=== PATIENT | female | born 1950 | race Hispanic/Latino ===

== ENCOUNTER 2019-07-12 10:59 | Observation (INO) | payer MEDICARE ==
--- NOTE | 2019-07-12 11:23 | Emergency Department Report ---
Blank Doc - Documentation Documentation: 69-year-old female that presents with syncopal episode and weakness. This initial assessment/diagnostic orders/clinical plan/treatment(s) is/are subject to change based on patient's health status, clinical progression and re- assessment by fellow clinical providers in the ED. Further treatment and workup at subsequent clinical providers discretion. Patient/guardians urged not to elope from the ED as their condition may be serious if not clinically assessed and managed. Initial orders include: 1- Patient sent to [facility] for further evaluation and treatment 2- cardiac work-up 3- xrays of knee
--- NOTE | 2019-07-12 12:24 | XRay Report ---
RIGHT KNEE 3 VIEWS INDICATION / CLINICAL INFORMATION: knee pain s/p fall COMPARISON: None available. FINDINGS: BONES and JOINT(S): No acute fracture or subluxation. No significant arthritis. SOFT TISSUES: No significant abnormality. ADDITIONAL FINDINGS: None. IMPRESSION: 1. No acute findings. Signer Name: Amos Chavez MD Signed: 07/12/2019 12:19 PM Workstation Name: [id number]
[2019-07-12 12:51] LABS: Basophils % (Auto) 0.5 % (0.0-1.8); Eosinophils % (Auto) 0.3 % (0.0-4.3); Hematocrit 37.6 % (30.3-42.9); Hemoglobin 12.7 gm/dl (10.1-14.3); Lymphocytes # (Auto) 0.9 K/mm3 (1.2-5.4); Lymphocytes % (Auto) 10.6 % (13.4-35.0); Mean Corpuscular HGB Conc 34 % (30-34); Mean Corpuscular Volume 84 fl (79-97); Monocytes % (Auto) 11.8 % (0.0-7.3); Platelet Count 275 K/mm3 (140-440); Red Blood Count 4.46 M/mm3 (3.65-5.03)
[2019-07-12 13:04] LABS: Alanine Aminotransferase 13 units/L (7-56); Albumin 3.9 g/dL (3.9-5); BUN/Creatinine Ratio 11; Blood Urea Nitrogen 8 mg/dL (7-17); Calcium 9.6 mg/dL (8.4-10.2); Hemolysis Index 12
[2019-07-12 13:07] LABS: INR 0.99 (0.87-1.13)
[2019-07-12 13:17] LABS: INR 1.14 (0.87-1.13)
--- NOTE | 2019-07-12 13:27 | Emergency Department Report ---
HPI - General Chief Complaint: Syncope Time Seen by Provider: 07/12/19 11:22 - HPI HPI: 69-year-old female presents to the emergency department by EMS after she was found laying on the ground, having passed out, on [address] The patient says that she was walking from her home to the emergency department to be seen. The patient was seen here 2 days ago on 07/09 for complaints of left hip pain, groin pain, and passing out. Patient says that she woke up this morning with increased pain to the hip, and headache and generalized weakness. She has a past medical history of COPD, hypertension, fibromyalgia and mitral valve prolapse. She is a tobacco smoker but denies any illicit drug use. Primary care physician is Dr. Santino Lawton but she has not seen them regarding her symptoms. No recent travel or sick contacts at home. ED Past Medical Hx - Past Medical History Previous Medical History?: Yes Hx Hypertension: Yes Hx COPD: Yes - Social History Smoking Status: Current Every Day Smoker Substance Use Type: None ED Review of Systems ROS: Stated complaint: WEAKNESS/CP/SYNCOPE Other details as noted in HPI Comment: All other systems reviewed and negative Constitutional: denies: chills, fever Eyes: denies: eye pain, vision change ENT: denies: ear pain, throat pain Respiratory: denies: shortness of breath, wheezing Cardiovascular: syncope. denies: chest pain Gastrointestinal: denies: abdominal pain, vomiting Genitourinary: denies: dysuria, discharge Musculoskeletal: arthralgia. denies: joint swelling Skin: denies: rash, lesions Neurological: headache. denies: numbness, paresthesias Physical Exam - Physical Exam Vital Signs: Vital Signs 07/12/19 07/12/19 11:23 12:44 Temperature 97.7 F 98.3 F Pulse Rate 82 71 Respiratory 20 21 Rate Blood Pressure 120/63 Blood Pressure 103/79 [Left] O2 Sat by Pulse 94 95 Oximetry Physical Exam: GENERAL: The patient is well-developed well-nourished. HENT: Normocephalic. Atraumatic. Patient has moist mucous membranes. EYES: Extraocular motions are intact. NECK: Supple. Trachea is midline. CHEST/LUNGS: Clear to auscultation. There is no respiratory distress noted. HEART/CARDIOVASCULAR: Regular. There is no tachycardia. There is no murmur. ABDOMEN: Abdomen is soft, nontender. Patient has normal bowel sounds. There is no abdominal distention. SKIN: Skin is warm and dry. NEURO: The patient is awake, alert, and oriented. The patient is cooperative. The patient has no focal neurologic deficits. Normal speech. Cranial nerves II through XII grossly intact. No pronator drift. No dysmetria. MUSCULOSKELETAL: Tenderness to palpation to the left hip but no obvious deformity. ED Course Vital Signs 07/12/19 07/12/19 11:23 12:44 Temperature 97.7 F 98.3 F Pulse Rate 82 71 Respiratory 20 21 Rate Blood Pressure 120/63 Blood Pressure 103/79 [Left] O2 Sat by Pulse 94 95 Oximetry ED Medical Decision Making - Lab Data Result diagrams: 07/13/19 03:05 07/13/19 03:05 - EKG Data -: EKG Interpreted by Me EKG shows normal: sinus rhythm, axis, intervals, QRS complexes (Q waves to the anterior leads), ST-T waves Rate: normal - EKG Data When compared to previous EKG there are: no significant change Interpretation: unchanged when compared t (02/09/19) - Radiology Data Radiology results: report reviewed, image reviewed interpreted by me: NONENHANCED CT SCAN OF THE HEAD: INDICATION / CLINICAL INFORMATION: 69 years Female; Syncope, Headache. TECHNIQUE: Routine CT head without contrast. All CT scans at this location are performed using CT dose reduction for ALARA by means of automated exposure control. COMPARISON: CT scan of the head from 03/25/2019 FINDINGS: BRAIN / INTRACRANIAL CONTENTS: No acute hemorrhage, mass effect, midline shift, hydrocephalus, or acute, large territorial infarct. No chronic infarct or focal atrophy confluent periventricular and deep hemispheric white matter low attenuation areas due to chronic small vessel disease; remains unchanged CRANIOCERVICAL JUNCTION: No significant abnormality. ORBITS: No significant abnormality of visualized orbits. SINUSES / MASTOIDS: No significant abnormality of the visualized paranasal sinuses or mastoid air cells. ADDITIONAL FINDINGS: None. IMPRESSION: CT findings remain unchanged; no acute parenchymal lesion in the brain Chest x-ray does not show any acute process. There are no pleural effusions, obvious pneumonia and there is no pneumothorax. X-ray of the left hip and right knee does not show any fracture, dislocation, or any acute process. - Medical Decision Making This patient presents to the emergency department with a complaint of multiple recent syncopal episodes including 2 in the past last 2 days. With this most recent fall she had some right knee pain and has been having left hip pain. X- rays were done of these areas that did not show any fracture, dislocation or any acute process. CT of the head did not show any acute bleed, shift, mass, ischemia, or any other acute process. EKG did not show any signs of ST eleva tion [place]. Labs were mostly unremarkable and did not show any etiology of the patient's symptoms. She will be admitted to the hospital for further evaluation and treatment and was accepted for admission by the hospitalist, Dr. Fontanez. - Differential Diagnosis Electrolyte abnormalities, dysrhythmia, CO, TIA Critical Care Time: No Critical care attestation.: If time is entered above; I have spent that time in minutes in the direct care of this critically ill patient, excluding procedure time. ED Disposition Clinical Impression: Syncope and collapse Nicotine dependence Qualifiers: Nicotine product type: cigarettes HTN (hypertension) Qualifiers: Hypertension type: essential hypertension Qualified Code(s): I10 - Essential (primary) hypertension Disposition: 09 OP ADMIT IP TO THIS HOSP Is pt being admited?: Yes Condition: Fair
[2019-07-12] MEDS ORDERED: MORPHINE 4 MG/1 ML INJ IM ONE (13:44)
[2019-07-12] MEDS ORDERED: MORPHINE 4 MG/1 ML INJ ONE (13:45)
--- NOTE | 2019-07-12 13:58 | XRay Report ---
LEFT HIP AND PELVIS 3 VIEWS INDICATION: Left hip pain. COMPARISON: No relevant prior imaging study available. FINDINGS: No acute skeletal abnormality. Mild osteoarthrosis changes are noted. No significant soft tissue swel ling. IMPRESSION: 1. No acute findings. CHEST 1 VIEW INDICATION: Syncope, cough. COMPARISON: 03/07/2019 FINDINGS: Support devices: None. Heart: Stable. Lungs/Pleura: No acute pulmonary or pleural findings. IMPRESSION: 1. No acute findings. Signer Name: Barry Mulligan MD Signed: 07/12/2019 1:54 PM Workstation Name: [id number]
--- NOTE | 2019-07-12 16:48 | Cat Scan Report ---
NONENHANCED CT SCAN OF THE HEAD: INDICATION / CLINICAL INFORMATION: 69 years Female; Syncope, Headache. TECHNIQUE: Routine CT head without contrast. All CT scans at this location are performed using CT dos e reduction for ALARA by means of automated exposure control. COMPARISON: CT scan of the head from 03/25/2019 FINDINGS: BRAIN / INTRACRANIAL CONTENTS: No acute hemorrhage, mass effect, midline shift, hydrocephalus, or ac [place], large territorial infarct. No chronic infarct or focal atrophy confluent periventricular and kalia p hemispheric white matter low attenuation areas due to chronic small vessel disease; remains unchang ed CRANIOCERVICAL JUNCTION: No significant abnormality. ORBITS: No significant abnormality of visualized orbits. SINUSES / MASTOIDS: No significant abnormality of the visualized paranasal sinuses or mastoid air tree ls. ADDITIONAL FINDINGS: None. IMPRESSION: CT findings remain unchanged; no acute parenchymal lesion in the brain Signer Name: Joseline Acosta MD Signed: 07/12/2019 4:44 PM Workstation Name: [id number]
[2019-07-12] MEDS ORDERED: oxyCODONE /ACETAMINOPHEN 5-325MG TAB PO PRN (20:10)
[2019-07-12] MEDS ORDERED: ONDANSETRON 4 MG/2 ML INJ IV PRN (20:10)
[2019-07-12] MEDS ORDERED: ACETAMINOPHEN 325 MG TAB PO PRN (20:10)
--- NOTE | 2019-07-12 20:15 | History and Physical Report ---
History of Present Illness Date of examination: 07/12/19 Date of admission: 07/12/19 Chief complaint: Passed out on [address] History of present illness: 69-year-old female presents to the emergency department by EMS after she was found laying on the ground, having passed out, on [address]. Very poor Historian.Says she passed out about 4 times over last 4 weeks.Apparently no workup was done. The patient says that she was walking from her home to the emergency department to be seen. The patient was seen here 2 days ago on 07/09 for complaints of left hip pain, groin pain, and passing out. Patient says that she woke up this morning with increased pain to the hip, and headache and generalized weakness. She has a past medical history of COPD, hypertension, fibromyalgia and mitral valve prolapse. She is a tobacco smoker but denies any illicit drug use. Primary care physician is Dr. Santino Lawton but she has not seen them regarding her symptoms. No recent travel or sick contacts at home. Answering my questions appropriately. Past Medical History Previous Medical History?: Yes Hypertension: Yes COPD: Yes Syncope Surgery Hx NA Social History Smoking Status: Current Every Day Smoker Substance Use Type: None FH HTN Review of Systems ROS: Stated complaint: WEAKNESS/CP/SYNCOPE Other details as noted in HPI Comment: All other systems reviewed and negative Constitutional: denies: chills, fever Eyes: denies: eye pain, vision change ENT: denies: ear pain, throat pain Respiratory: denies: shortness of breath, wheezing Cardiovascular: syncope. denies: chest pain Gastrointestinal: denies: abdominal pain, vomiting Genitourinary: denies: dysuria, discharge Musculoskeletal: arthralgia. denies: joint swelling Skin: denies: rash, lesions Neurological: headache. denies: numbness, paresthesias Medications and Allergies Allergies Allergy/AdvReac Type Severity Reaction Status Date / Time codeine Allergy Itching Verified 07/12/19 11:06 Iodine and Iodide Containing Allergy Unknown Verified 07/12/19 11:07 Produc Penicillins Allergy Hives Verified 07/12/19 11:06 Active Meds: Active Medications Acetaminophen (Tylenol) 650 mg PO Q4H PRN PRN Reason: Pain MILD(1-3)/Fever >100.5/PADILLA Famotidine (Pepcid) 20 mg PO BID SALUD Heparin Sodium (Porcine) (Heparin) 5,000 unit SUB-Q Q12HR SALUD Hydromorphone HCl (Dilaudid) 0.5 mg IV Q3H PRN PRN Reason: Pain , Severe (7-10) Sodium Chloride (Nacl 0.9% 1000 Ml) 1,000 mls @ 75 mls/hr IV DIRECT SALUD Ondansetron HCl (Zofran) 4 mg IV Q8H PRN PRN Reason: Nausea And Vomiting Oxycodone/Acetaminophen (Percocet 5/325) 1 tab PO Q6H PRN PRN Reason: Pain, Moderate (4-6) Sodium Chloride (Sodium Chloride Flush Syringe 10 Ml) 10 ml IV BID SALUD Sodium Chloride (Sodium Chloride Flush Syringe 10 Ml) 10 ml IV PRN PRN PRN Reason: LINE FLUSH Exam - Constitutional Vitals: Temp Pulse Resp BP Pulse Ox 98.3 F 71 21 103/79 95 07/12/19 12:44 07/12/19 12:44 07/12/19 12:44 07/12/19 12:44 07/12/19 12:44 General appearance: Present: no acute distress, well-nourished - EENT Eyes: Present: PERRL ENT: hearing intact, clear oral mucosa - Neck Neck: Present: supple, normal ROM - Respiratory Respiratory effort: normal Respiratory: bilateral: CTA - Cardiovascular Heart rate: 76 Rhythm: regular Heart Sounds: Present: S1 & S2. Absent: rub, click - Extremities Extremities: pulses symmetrical, No edema Peripheral Pulses: within normal limits - Abdominal General gastrointestinal: Present: soft, non-tender, non-distended, normal bowel sounds Female genitourinary: Present: normal - Integumentary Integumentary: Present: clear, warm, dry - Musculoskeletal Musculoskeletal: gait normal, strength equal bilaterally - Psychiatric Psychiatric: appropriate mood/affect, intact judgment & insight - Neurologic Neurologic: CNII-XII intact, moves all extremities - Allied Health Allied health notes reviewed: nursing, case management CALVIN score - Calvin Score Age > 65: (1) Yes Aspirin use within the Past 7 Days: (0) No 3 or more CAD Risk Factors: (0) No 2 or more Angina events in past 24 hrs: (0) No Known CAD with more than 50% Stenosis: (0) No Elevated Cardiac Markers: (0) No ST Deviation Greater than 0.5mm: (0) No CALVIN Score: 1 Results - Labs CBC & Chem 7: 07/13/19 03:05 07/13/19 03:05 Labs: Laboratory Last Values WBC 8.8 K/mm3 (4.5-11.0) 07/12/19 12:00 RBC 4.46 M/mm3 (3.65-5.03) 07/12/19 12:00 Hgb 12.7 gm/dl (10.1-14.3) 07/12/19 12:00 Hct 37.6 % (30.3-42.9) 07/12/19 12:00 MCV 84 fl (79-97) 07/12/19 12:00 MCH 29 pg (28-32) 07/12/19 12:00 MCHC 34 % (30-34) 07/12/19 12:00 RDW 15.0 % (13.2-15.2) 07/12/19 12:00 Plt Count 275 K/mm3 (140-440) 07/12/19 12:00 Lymph % (Auto) 10.6 % (13.4-35.0) L 07/12/19 12:00 [place] % (Auto) 11.8 % (0.0-7.3) H 07/12/19 12:00 Eos % (Auto) 0.3 % (0.0-4.3) 07/12/19 12:00 Baso % (Auto) 0.5 % (0.0-1.8) 07/12/19 12:00 Lymph # 0.9 K/mm3 (1.2-5.4) L 07/12/19 12:00 [place] # 1.0 K/mm3 (0.0-0.8) H 07/12/19 12:00 Eos # 0.0 K/mm3 (0.0-0.4) 07/12/19 12:00 Baso # 0.0 K/mm3 (0.0-0.1) 07/12/19 12:00 Seg Neutrophils % 76.8 % (40.0-70.0) H 07/12/19 12:00 Seg Neutrophils # 6.8 K/mm3 (1.8-7.7) 07/12/19 12:00 PT 14.8 Sec. (12.2-14.9) 07/12/19 12:48 INR 1.14 (0.87-1.13) H 07/12/19 12:48 APTT 32.0 Sec. (24.2-36.6) 07/12/19 12:00 Sodium 132 mmol/L (137-145) L 07/12/19 12:00 Potassium 4.4 mmol/L (3.6-5.0) 07/12/19 12:00 Chloride 94.7 mmol/L (98-107) L 07/12/19 12:00 Carbon Dioxide 20 mmol/L (22-30) L 07/12/19 12:00 Anion Gap 22 mmol/L 07/12/19 12:00 BUN 8 mg/dL (7-17) 07/12/19 12:00 Creatinine 0.7 mg/dL (0.7-1.2) 07/12/19 12:00 Estimated GFR > 60 ml/min 07/12/19 12:00 BUN/Creatinine Ratio 11 % 07/12/19 12:00 Glucose 105 mg/dL (65-100) H 07/12/19 12:00 Calcium 9.6 mg/dL (8.4-10.2) 07/12/19 12:00 Total Bilirubin 0.90 mg/dL (0.1-1.2) 07/12/19 12:00 AST 22 units/L (5-40) 07/12/19 12:00 ALT 13 units/L (7-56) 07/12/19 12:00 Alkaline Phosphatase 92 units/L (35-129) 07/12/19 12:00 Troponin T < 0.010 ng/mL (0.00-0.029) 07/12/19 14:21 Total Protein 7.9 g/dL (6.3-8.2) 07/12/19 12:00 Albumin 3.9 g/dL (3.9-5) 07/12/19 12:00 Albumin/Globulin Ratio 1.0 % 07/12/19 12:00 TSH 1.590 mlU/mL (0.270-4.200) 07/12/19 12:48 Short CBC 07/12/19 07/13/19 Range/Units 12:00 03:05 WBC 8.8 8.6 (4.5-11.0) K/mm3 Hgb 12.7 11.6 (10.1-14.3) gm/dl Hct 37.6 34.9 (30.3-42.9) % Plt Count 275 253 (140-440) K/mm3 BMP 07/12/19 07/13/19 12:00 03:05 Sodium 132 L 133 L Potassium 4.4 4.2 Chloride 94.7 L 97.6 L Carbon Dioxide 20 L 22 BUN 8 10 Creatinine 0.7 0.5 L Glucose 105 H 102 H Calcium 9.6 8.9 Cardiac Enzymes 07/12/19 07/12/19 07/13/19 Range/Units 14:21 20:34 02:55 Troponin T < 0.010 < 0.010 < 0.010 (0.00-0.029) ng/mL Liver Function 07/12/19 07/13/19 Range/Units 12:00 03:05 Total Bilirubin 0.90 0.40 (0.1-1.2) mg/dL AST 22 17 (5-40) units/L ALT 13 11 (7-56) units/L Alkaline Phosphatase 92 87 (35-129) units/L Albumin 3.9 3.5 L (3.9-5) g/dL Urine 07/12/19 Range/Units Unknown Urine Color Yellow (Yellow) Urine pH 6.0 (5.0-7.0) Ur Specific [place] 1.010 (1.003-1.030) Urine Protein <15 mg/dl (Negative) mg/dL Urine Glucose (UA) Neg (Negative) mg/dL - Imaging and Cardiology EKG: report reviewed (NSR 76/min old ant infarct) Assessment and Plan Advance Directives: Yes (Full code) VTE prophylaxis?: Chemical Plan of care discussed with patient/family: Yes - Patient Problems (1) Syncope and collapse Current Visit: Yes Status: Acute Plan to address problem: Syncope work up ECHO and Lexiscan and CDS Orthostatics positive (2) Hyponatremia Current Visit: Yes Status: Acute Plan to address problem: IV NS for now (3) COPD (chronic obstructive pulmonary disease) Current Visit: Yes Status: Chronic Qualifiers: Emphysema type: unspecified Plan to address problem: Duonebs prd (4) Nicotine dependence Current Visit: Yes Status: Chronic Qualifiers: Nicotine product type: cigarettes Plan to address problem: Counselled Nicoderm patch initiated (5) HTN (hypertension) Current Visit: Yes Status: Chronic Qualifiers: Hypertension type: essential hypertension Qualified Code(s): I10 - Essential (primary) hypertension Plan to address problem: By history No BP meds Trend and start antihypertensives if necessary (6) DVT prophylaxis Current Visit: Yes Status: Acute Plan to address problem: On Heparin and GI prophylaxis
[2019-07-12] MEDS ORDERED: HYDROmorphone 1 MG/1 ML INJ ONE (20:25)
[2019-07-12] MEDS: HYDROmorphone 1 MG/1 ML INJ IV PRN (20:51)
[2019-07-12 21:21] LABS: Bacteria,Urine 1+ /HPF (Negative); Bilirubin,Urine NEG (Negative); Blood,Urine NEG (Negative); Color,Urine Yellow (Yellow); Mucus,Urine FEW /HPF; Protein,Urine <15 mg/dL mg/dL (Negative)
[2019-07-12 21:39] LABS: Amphetamine Screen,Urine PRESUMPTIVE NEGATIVE; Benzodiazepines Screen,Urine PRESUMPTIVE NEGATIVE; Cannabinoid Screen,Urine PRESUMPTIVE NEGATIVE; Cocaine Screen,Urine PRESUMPTIVE NEGATIVE; Methadone Screen,Urine PRESUMPTIVE NEGATIVE; Opiate Screen,Urine PRESUMPTIVE NEGATIVE
[2019-07-12] MEDS: HEPARIN 5,000 UNIT/1 ML VIAL SUB-Q SCH (22:21)
[2019-07-12] MEDS: FAMOTIDINE 20 MG TAB PO SCH (22:21)
[2019-07-12] MEDS: SODIUM CHLORIDE 0.9% 1000 ML 1,000 ML IV SCH (22:21)
[2019-07-13 03:20] LABS: Basophils % (Auto) 0.4 % (0.0-1.8); Eosinophils # (Auto) 0.1 K/mm3 (0.0-0.4); Hematocrit 34.9 % (30.3-42.9); Hemoglobin 11.6 gm/dl (10.1-14.3); Lymphocytes # (Auto) 1.5 K/mm3 (1.2-5.4); Mean Corpuscular HGB Conc 33 % (30-34); Mean Corpuscular Volume 84 fl (79-97); Monocytes # (Auto) 1.1 K/mm3 (0.0-0.8); Monocytes % (Auto) 12.4 % (0.0-7.3); Platelet Count 253 K/mm3 (140-440); Red Blood Count 4.15 M/mm3 (3.65-5.03); Red Cell Distribution Width 14.9 % (13.2-15.2)
[2019-07-13 03:37] LABS: Alanine Aminotransferase 11 units/L (7-56); Albumin 3.5 g/dL (3.9-5); BUN/Creatinine Ratio 20; Blood Urea Nitrogen 10 mg/dL (7-17); Calcium 8.9 mg/dL (8.4-10.2); Hemolysis Index 18
[2019-07-13] MEDS ORDERED: REGADENOSON 0.4 MG/5 ML INJ IV ONE (08:06)
--- NOTE | 2019-07-13 10:20 | Vascular Lab Report ---
BILATERAL CAROTID DUPLEX DOPPLER ULTRASOUND HISTORY: Syncope COMPARISON: None. TECHNIQUE: Wang scale, color and spectral Doppler imaging was performed of the extracranial neck ceferino sebastian. All stenosis measurements were obtained in comparison with the distal internal carotid artery per the SRU consensus criteria. FINDINGS: RIGHT NECK ARTERIES: CCA: No significant abnormality. ICA: Moderate calcified bulb plaque. ECA: No significant abnormality. Vertebral Artery: No significant abnormality. Antegrade flow. LEFT NECK ARTERIES: CCA: No significant abnormality. ICA: Extensive calcified bulb plaque. ECA: No significant abnormality. Vertebral Artery: No significant abnormality. Antegrade flow. CCA PSV: Right: 122 Left: 91 cm/sec ICA PSV: Right: 88 Left: 137 cm/sec ICA/CCA: Right: 1.36 Left 2.26 ADDITIONAL FINDINGS: None. IMPRESSION: 1. 50-79% stenosis proximal left ICA. 2. Less than 50% stenosis proximal right ICA. Signer Name: Santino Mann MD Signed: 07/13/2019 10:16 AM Workstation Name: [id number]
[2019-07-13] MEDS: HYDROmorphone 1 MG/1 ML INJ IV PRN ×3 (11:55→20:55)
[2019-07-13] MEDS: FAMOTIDINE 20 MG TAB PO SCH ×2 (11:55→20:59)
--- NOTE | 2019-07-13 13:09 | Treadmill Report ---
THALIUM STRESS TEST. LEFT VENTRICLE: Left ventricular chamber size is within normal spread. Perfusion study demonstrates homogeneous uptake of the tracer in all segments, no significant defects identified. Gated analysis demonstrates normal left ventricular systolic function, ejection fraction is calculated at 72%. CONCLUSION: Normal myocardial perfusion study. JOB# [id number] CA/NTS
--- NOTE | 2019-07-13 13:33 | Progress Note ---
Assessment and Plan Assessment and plan: Syncope and collapse -Patient had orthostatic hypotension and was given IV fluids -Echo and stress test was negative -CT head was negative -Carotid Doppler was done showed left ICA stenosis 50 to 79%, order CTA neck -PT OT evaluation Bilateral pneumonia -Patient is on IV antibiotics -Patient had fever overnight Hyponatremia -Improved with IV fluid COPD exacerbation -PRN DuoNeb's -Not in exacerbation Nicotine dependence -Counseled about cessation of smoking -Continue NicoDerm patch Hypertension -Controlled DVT prophylaxis -On heparin Disposition -Continue inpatient care. Follow until she is fever free. History Interval history: Patient was seen and evaluated this morning, patient is complaining of pain at the hip and shoulder, the site where she hits when she fall. Patient had episode of fever overnight 100.7. Hospitalist Physical - Physical exam Narrative exam: Not in cardiopulmonary distress. The patient appeared well nourished and normally developed. Vital signs as documented. Head exam is unremarkable. No scleral icterus . Neck is without jugular venous distension, thyromegaly, or carotid bruits. Lungs are clear to auscultation. Cardiac exam reveals regular rate and Rhythm. Abdominal exam reveals normal bowel sounds, nontender, no organomegaly. Extremities are nonedematous and both femoral and pedal pulses are normal. PURCHASING COORDINATOR: Alert and oriented 3. No focal weakness. - Constitutional Vitals: Temp Pulse Resp BP Pulse Ox 98.2 F 74 20 147/76 91 07/13/19 12:28 07/13/19 12:28 07/13/19 12:28 07/13/19 12:28 07/13/19 12:28 General appearance: Present: no acute distress, well-nourished ARI score - Ari Score Age > 65: (1) Yes Aspirin use within the Past 7 Days: (0) No 3 or more CAD Risk Factors: (0) No 2 or more Angina events in past 24 hrs: (0) No Known CAD with more than 50% Stenosis: (0) No Elevated Cardiac Markers: (0) No ST Deviation Greater than 0.5mm: (0) No ARI Score: 1 Results - Labs CBC & Chem 7: 07/13/19 03:05 07/13/19 03:05 Labs: Laboratory Last Values WBC 8.6 K/mm3 (4.5-11.0) 07/13/19 03:05 RBC 4.15 M/mm3 (3.65-5.03) 07/13/19 03:05 Hgb 11.6 gm/dl (10.1-14.3) 07/13/19 03:05 Hct 34.9 % (30.3-42.9) 07/13/19 03:05 MCV 84 fl (79-97) 07/13/19 03:05 MCH 28 pg (28-32) 07/13/19 03:05 MCHC 33 % (30-34) 07/13/19 03:05 RDW 14.9 % (13.2-15.2) 07/13/19 03:05 Plt Count 253 K/mm3 (140-440) 07/13/19 03:05 Lymph % (Auto) 17.0 % (13.4-35.0) 07/13/19 03:05 [place] % (Auto) 12.4 % (0.0-7.3) H 07/13/19 03:05 Eos % (Auto) 1.0 % (0.0-4.3) 07/13/19 03:05 Baso % (Auto) 0.4 % (0.0-1.8) 07/13/19 03:05 Lymph # 1.5 K/mm3 (1.2-5.4) 07/13/19 03:05 [place] # 1.1 K/mm3 (0.0-0.8) H 07/13/19 03:05 Eos # 0.1 K/mm3 (0.0-0.4) 07/13/19 03:05 Baso # 0.0 K/mm3 (0.0-0.1) 07/13/19 03:05 Seg Neutrophils % 69.2 % (40.0-70.0) 07/13/19 03:05 Seg Neutrophils # 6.0 K/mm3 (1.8-7.7) 07/13/19 03:05 PT 14.8 Sec. (12.2-14.9) 07/12/19 12:48 INR 1.14 (0.87-1.13) H 07/12/19 12:48 APTT 32.0 Sec. (24.2-36.6) 07/12/19 12:00 Sodium 133 mmol/L (137-145) L 07/13/19 03:05 Potassium 4.2 mmol/L (3.6-5.0) 07/13/19 03:05 Chloride 97.6 mmol/L (98-107) L 07/13/19 03:05 Carbon Dioxide 22 mmol/L (22-30) 07/13/19 03:05 Anion Gap 18 mmol/L 07/13/19 03:05 BUN 10 mg/dL (7-17) 07/13/19 03:05 Creatinine 0.5 mg/dL (0.7-1.2) L 07/13/19 03:05 Estimated GFR > 60 ml/min 07/13/19 03:05 BUN/Creatinine Ratio 20 % 07/13/19 03:05 Glucose 102 mg/dL (65-100) H 07/13/19 03:05 Hemoglobin A1c 5.5 % (4-6) 07/13/19 03:05 Calcium 8.9 mg/dL (8.4-10.2) 07/13/19 03:05 Total Bilirubin 0.40 mg/dL (0.1-1.2) 07/13/19 03:05 AST 17 units/L (5-40) 07/13/19 03:05 ALT 11 units/L (7-56) 07/13/19 03:05 Alkaline Phosphatase 87 units/L (35-129) 07/13/19 03:05 Troponin T < 0.010 ng/mL (0.00-0.029) 07/13/19 07:22 Total Protein 6.9 g/dL (6.3-8.2) 07/13/19 03:05 Albumin 3.5 g/dL (3.9-5) L 07/13/19 03:05 Albumin/Globulin Ratio 1.0 % 07/13/19 03:05 TSH 1.590 mlU/mL (0.270-4.200) 07/12/19 12:48 Urine Color Yellow (Yellow) 07/12/19 Unknown Urine Turbidity Clear (Clear) 07/12/19 Unknown Urine pH 6.0 (5.0-7.0) 07/12/19 Unknown Ur Specific [place] 1.010 (1.003-1.030) 07/12/19 Unknown Urine Protein <15 mg/dl mg/dL (Negative) 07/12/19 Unknown Urine Glucose (UA) Neg mg/dL (Negative) 07/12/19 Unknown Urine Ketones Neg mg/dL (Negative) 07/12/19 Unknown Urine Blood Neg (Negative) 07/12/19 Unknown Urine Nitrite Neg (Negative) 07/12/19 Unknown Urine Bilirubin Neg (Negative) 07/12/19 Unknown Urine Urobilinogen 4.0 mg/dL (<2.0) 07/12/19 Unknown Ur Leukocyte Esterase Neg (Negative) 07/12/19 Unknown Urine WBC (Auto) 1.0 /HPF (0.0-6.0) 07/12/19 Unknown Urine RBC (Auto) 7.0 /HPF (0.0-6.0) 07/12/19 Unknown U Epithel Cells (Auto) 4.0 /HPF (0-13.0) 07/12/19 Unknown Urine Bacteria (Auto) 1+ /HPF (Negative) 07/12/19 Unknown Urine Mucus Few /HPF 07/12/19 Unknown Urine Yeast (Budding) Few /HPF 07/12/19 Unknown Urine Opiates Screen Presumptive negative 07/12/19 Unknown Urine Methadone Screen Presumptive negative 07/12/19 Unknown Ur Barbiturates Screen Presumptive negative 07/12/19 Unknown Ur Phencyclidine Scrn Presumptive negative 07/12/19 Unknown Ur Amphetamines Screen Presumptive negative 07/12/19 Unknown U Benzodiazepines Scrn Presumptive negative 07/12/19 Unknown Urine Cocaine Screen Presumptive negative 07/12/19 Unknown U Marijuana (THC) Screen Presumptive negative 07/12/19 Unknown Drugs of Abuse Note Disclamer 07/12/19 Unknown - Diagnostic Impressions Diagnostic Impressions: Echocardiogram 07/12/19 20:15 Transthoracic Echocardiogram Indication: Syncope BP: 122/55 HR: 62 Conclusions *Global left ventricular systolic function is normal. *The estimated ejection fraction is 55-60%. *Mild concentric left ventricular hypertrophy is observed. *There is trace-mild mitral regurgitation. *There is mild tricuspid regurgitation. Findings Left Ventricle: The left ventricular chamber size is normal. Mild concentric left ventricular hypertrophy is observed. Global left ventricular systolic function is normal. The estimated ejection fraction is 55-60%. Left Atrium: The left atrial chamber size is normal. Right Ventricle: The right ventricular cavity size is normal. The right ventricular global systolic function is normal. Right Atrium: The right atrial cavity size is normal. Aortic Valve: The aortic valve is trileaflet. The aortic valve leaflets are mildly thickened. There is no evidence of aortic regurgitation. There is no evidence of aortic stenosis. Mitral Valve: The mitral valve leaflets are mildly thickened. There is mild mitral regurgitation. There is no evidence of mitral stenosis. Tricuspid Valve: There is mild tricuspid regurgitation. No pulmonary hypertension is noted. Pulmonic Valve: There is trace pulmonic regurgitation. Pericardium: There is no pericardial effusion. Aorta: There is no dilatation of the ascending aorta. There is no dilatation of the aortic arch. There is no dilatation of the aortic root. Venous: The inferior vena cava appears normal in size. Measurements Chambers 2D Name Value Normal Range IVSd (2D) 0.92 cm (0.6 - 1.1) LVPWd (2D) 0.88 cm (0.6 - 1.1) LVIDd (2D) 4.09 cm (3.7 - 5.6) LVIDs (2D) 2.93 cm (2 - 3.8) LV FS (2D) 28.41 % - EF Teichholz (2D) 55.31 % - Ao root diameter (2D) 3 cm (2 - 3.7) Volumes/Mass Name Value Normal Range LA ESV SP 4CH (A/L) 46.79 ml - LA ESV SP 2CH (A/L) 50.52 ml - LA ESV BP (A/L) 49.46 ml - LA ESV BP (A/L) index 26.88 ml/m2 - LA ESV SP 4CH (MOD) 43.84 ml - LA ESV SP 2CH (MOD) 48.98 ml - LA ESV BP (MOD) 47.05 ml - LA ESV BP (MOD) index 25.57 ml/m2 - Diastolic/Systolic Function Name Value Normal Range MV E-wave Vmax 0.7 m/sec - MV deceleration time 285.61 msec - MV A-wave Vmax 0.93 m/sec - MV E:A ratio 0.75 ratio - Aortic Valve Name Value Normal Range AV Vmax 1.37 m/sec - AV VTI 31.88 cm - AV peak gradient 7.56 mmHg - AV mean gradient 3.95 mmHg - LVOT diameter 2.04 cm - LVOT Vmax 1.09 m/sec - LVOT VTI 26.44 cm - LVOT peak gradient 4.77 mmHg - LVOT mean gradient 2.55 mmHg - SV LVOT 86.48 ml - KEVIN (continuity Vmax) 2.6 cm2 - KEVIN (continuity VTI) 2.71 cm2 - Tricuspid Valve Name Value Normal Range TR Vmax 2 m/sec - TR peak gradient 16 mmHg - RAP 3 mmHg - RVSP 18 mmHg - IVC diameter 1.85 cm (1.2 - 2.3) Pulmonic Valve/Qp:Qs Name Value Normal Range PV Vmax 1.05 m/sec - PV peak gradient 4.37 mmHg - PV acceleration time 95.15 msec - Méndez/IV: Voiding Method Toilet IV Catheter Type [Left Forearm INT / Saline Lock ] Active Medications - Current Medications Current Medications: Generic Name Dose Route Start Last Admin Trade Name Freq PRN Reason Stop Dose Admin Acetaminophen 650 mg 07/12/19 20:10 07/13/19 01:45 Tylenol PO 650 mg Q4H PRN Administration Pain MILD(1-3)/Fever >100.5/PADILLA Famotidine 20 mg 07/12/19 22:00 07/13/19 11:55 Pepcid PO 20 mg BID SALUD Administration Heparin Sodium (Porcine) 5,000 unit 07/12/19 22:00 07/12/19 22:21 Heparin SUB-Q 5,000 unit Q12HR SALUD Administration Hydromorphone HCl 0.5 mg 07/12/19 20:10 07/13/19 11:55 Dilaudid IV 0.5 mg Q3H PRN Administration Pain , Severe (7-10) Sodium Chloride 1,000 mls @ 75 mls/hr 07/12/19 20:15 07/12/19 22:21 Nacl 0.9% 1000 Ml IV 75 mls/hr DIRECT SALUD Administration Ondansetron HCl 4 mg 07/12/19 20:10 Zofran IV Q8H PRN Nausea And Vomiting Oxycodone/Acetaminophen 1 tab 07/12/19 20:10 Percocet 5/325 PO Q6H PRN Pain, Moderate (4-6) Sodium Chloride 10 ml 07/12/19 22:00 07/13/19 11:55 Sodium Chloride Flush Syringe 10 Ml IV 10 ml BID SALUD Administration Sodium Chloride 10 ml 07/12/19 20:10 Sodium Chloride Flush Syringe 10 Ml IV PRN PRN LINE FLUSH
[2019-07-13] MEDS: HEPARIN 5,000 UNIT/1 ML VIAL SUB-Q SCH ×2 (15:21→20:59)
[2019-07-14] MEDS: HYDROmorphone 1 MG/1 ML INJ IV PRN ×3 (00:37→09:51)
[2019-07-14] MEDS: SODIUM CHLORIDE 0.9% 1000 ML 1,000 ML IV SCH (04:59)
[2019-07-14] MEDS: HEPARIN 5,000 UNIT/1 ML VIAL SUB-Q SCH (09:51)
[2019-07-14] MEDS: FAMOTIDINE 20 MG TAB PO SCH (09:51)
--- NOTE | 2019-07-14 11:43 | Discharge Summary ---
Providers - Providers Date of Admission: 07/12/19 20:10 Date of discharge: 07/14/19 Attending physician: CHAZ VARGAS MD 07/13/19 08:20 Physical Therapy Evaluation and Treat [CONS] Routine Comment: Reason For Exam: syncope and collapse 07/13/19 08:21 Occupational Therapy Evaluate and Treat [CONS] Routine Comment: Reason For Exam: syncope and fall Primary care physician: DEXTER LAKHANI Hospitalization Reason for admission: Syncope, fall, Bilateral pneumonia Condition: Fair Hospital course: 69-year-old female presents to the emergency department by EMS after she was found laying on the ground, having passed out, [place] [address]. Very poor Historian.Says she passed out about 4 times over last 4 weeks.Apparently no workup was done. The patient says that she was walking from her home to the emergency department to be seen. The patient was seen here 2 days ago on 07/09 for complaints of left hip pain, groin pain, and passing out. Patient says that she woke up this morning with increased pain to the hip, and headache and generalized weakness. She has a past medical history of COPD, hypertension, fibromyalgia and mitral valve prolapse. She is a tobacco smoker but denies any illicit drug use. Primary care physician is Dr. Dexter Lakhani but she has not seen them regarding her symptoms. No recent travel or sick contacts at home. Answering my questions appropriately. patient was admitted to the floor and was started with appropriate antibiotics for pneumonia. CT head, Echo was done and unremarkable. carotid doppler showed left ICA 50-79% stenosis. CTA was ordered and was not done because patient is allergic to contrast. Patient scheduled to see vascular as an O/P. Patient was evaluated by PT/OT and no need. patient was doing well and ambulating without problems and discharged home with PO antibiotics. Disposition: - TO HOME OR SELFCARE Time spent for discharge: 32 minutes - Discharge Diagnoses (1) Pneumonia Status: Acute Qualifiers: Pneumonia type: due to unspecified organism Laterality: bilateral Lung location: unspecified part of lung Qualified Code(s): J18.9 - Pneumonia, unspecified organism (2) Hyponatremia Status: Acute (3) Syncope and collapse Status: Acute (4) COPD (chronic obstructive pulmonary disease) Status: Chronic Qualifiers: Emphysema type: unspecified (5) HTN (hypertension) Status: Chronic Qualifiers: Hypertension type: essential hypertension Qualified Code(s): I10 - Essential (primary) hypertension (6) Nicotine dependence Status: Chronic Qualifiers: Nicotine product type: cigarettes Core Measure Documentation - Palliative Care Palliative Care/ Comfort Measures: Not Applicable - Core Measures Any of the following diagnoses?: none Exam - Physical Exam Narrative exam: Not in cardiopulmonary distress. The patient appeared well nourished and normally developed. Vital signs as documented. Head exam is unremarkable. No scleral icterus . Neck is without jugular venous distension, thyromegaly, or carotid bruits. Lungs are clear to auscultation. Cardiac exam reveals regular rate and Rhythm. Abdominal exam reveals normal bowel sounds, nontender, no organomegaly. Extremities are nonedematous and both femoral and pedal pulses are normal. INTERNET MARKETING MANAGER: Alert and oriented 3. No focal weakness. - Constitutional Vitals: Temp Pulse Resp BP Pulse Ox 98.3 F 61 18 151/68 97 07/14/19 08:00 07/14/19 10:00 07/14/19 08:00 07/14/19 08:00 07/14/19 04:03 Plan Activity: no restrictions Weight Bearing Status: Full Weight Bearing Diet: regular Follow up with: JOHNIE BERGMAN MD [Staff Physician] - 7 Days POCASSET ALMAZ PECK MD [Referring] - 14 Days (50-79% ICA stenosis) Forms: Discharge Signature Page Prescriptions: levoFLOXacin [Levaquin] 750 mg PO QDAY #7 tablet
[2019-07-14 12:27] VITALS: BP 175/83
== END 2019-07-14 14:44 | disposition home or self-care (01) ==
LOC: EDSEX → ED 10:59 → 4A 20:10
PROVIDERS: ADMIT Internal Medicine; ATTEND Internal Medicine
DX: R55 Syncope and collapse (principal); I10 Essential (primary) hypertension; J44.9 Chronic obstructive pulmonary disease, unspecified; J18.9 Pneumonia, unspecified organism; E87.1 Hypo-osmolality and hyponatremia; F17.200 Nicotine dependence, unspecified, uncomplicated
CPT/HCPCS: 36415; 70450; 71045; 73502; 73562; 78452; 80053; 80307; 81001; 83036; 84443; 84484; 85025; 85610; 85730; 93005; 93010; 93017; 93306; 93880; 96361; 96372; 96374; 96376; 97161; 99406; A9502; G0378; J1170; J1644; J2270; J2785; J7030

== ENCOUNTER 2020-10-24 12:19 | Outpatient (CLI) | payer MEDICARE ==
--- NOTE | 2020-10-24 13:28 | Vascular Lab Report ---
DUPLEX DOPPLER LOWER EXTREMITY VEINS, LEFT INDICATION / CLINICAL INFORMATION: EDEMA/ LUNG CANCER. TECHNIQUE: Duplex doppler imaging was performed through the veins of the left lower extremity using venous compr ession and other maneuvers. COMPARISON: None available. FINDINGS: LEFT COMMON FEMORAL VEIN: Negative. LEFT FEMORAL VEIN: Negative. LEFT POPLITEAL VEIN: Negative. LEFT CALF VEINS: Negative. ADDITIONAL FINDINGS: None. IMPRESSION: 1. No sonographic evidence for DVT in the left lower extremity. Signer Name: Jesse Edmonds MD Signed: 10/24/2020 1:24 PM Workstation Name: [email or web address]
== END 2020-10-24 12:20 | disposition home or self-care (01) ==
LOC: VAS 12:19
PROVIDERS: ATTEND Internal Medicine Hematology & Oncology
DX: C34.91 Malignant neoplasm of unspecified part of right bronchus or lung (principal)